=== PATIENT | male | born 1970 | race Caucasian/White ===

== ENCOUNTER 2024-07-24 21:28 | Emergency (ER) | payer MEDICARE, SELFPAY ==
--- NOTE | ~2024-07-24 | XR_ITS ---
CLINICAL HISTORY: injury 2 view right knee Comparison: None Findings: No fractures or dislocations. No arthritic change. No joint effusion. No radiopaque foreign body. IMPRESSION: 1. No acute findings. This document has been electronically signed by: Del Laws MD on 07/25/2024 00:38:09
[2024-07-24 21:30] VITALS: BP 160/92; PULSE 92; O2SAT 99
[2024-07-24 21:50] VITALS: BP 137/71; PULSE 94; RESP 20; TEMP 36.6; O2SAT 98; BMI 46.4
[2024-07-25] MEDS: Ketorolac Tromethamine 15 MG/ML VIAL IM (02:14)
--- NOTE | 2024-07-25 02:17 | PC.NURSE ---
Medicated per MAR. Tech at bedside for immobilizer and crutches.
--- NOTE | 2024-07-25 02:37 | ED_ITS ---
HPI - General Adult General Chief complaint: Extremity Injury, Lower Stated complaint: knee pain rt Time Seen by Provider: 07/24/24 23:57 Source: patient Limitations: no limitations History of Present Illness ED Provider: Geneva Corley PA-C HPI narrative: 54-year-old male presents with right knee pain. Patient states he sustained a fall on , he can not recall exactly how he landed. He has had pain and swelling since. The pain has worsened. Patient is still ambulatory. Related Data Previous Rx's ?Medication ?Instructions ?Recorded ketorolac 10 mg tablet 10 mg PO Q6H PRN pain #20 tabs 07/25/24 Allergies Allergy/AdvReac Type Severity Reaction Status Date / Time florfeenicol AdvReac Rash Uncoded 07/24/24 22:02 Review of Systems Review of Systems: Yes all other systems are reviewed and are negative Constitutional: Constitutional: Denies fatigue and Denies fever(s) Musculoskeletal: Musculoskeletal: Reports arthralgias and Reports joint swelling Endocrine: Endocrine: Denies fatigue PMFSH Past Medical History Attestation statement: The following information was validated with the patient. Social History Social History Advance Directives: No Advance Directives Information Provided: No Do you have a plan to hurt others: No Plan Physical Exam ED Vital Signs: Vital Signs - 24 hr 07/24/24 21:50 Temperature 97.9 F Pulse Rate 94 Respiratory Rate 20 Blood Pressure 137/71 Pulse Oximetry 98 Oxygen Delivery Method Room Air BMI result Body Mass Index 46.4 Const Other: Alert well-appearing Orientation/consciousness: patient oriented x3 Resp Effort & Inspection: normal respiratory effort Cardio Other: normal peripheral perfusion Skin Other: warm dry no rash Neuro General: patient oriented x3, gait normal, no focal motor deficits and CN's II- XI intact bilaterally Extrem Other: mild swelling noted over the right knee, overlying ecchymosis noted, the knee is warm to touch, full flexion and extension no deformity Psych Other: cooperative Medications Administered Discontinued Medications Generic Name Dose Route Start Last Admin Trade Name Freq PRN Reason Stop Dose Admin Ketorolac Tromethamine 15 mg 07/25/24 01:57 07/25/24 02:14 Ketorolac Tromethamine 15 Mg/Ml Vial IM 07/25/24 01:58 15 mg ONCE ONE Administration Medical Decision Making Medical Decision Making MDM Narrative: 54-year-old male presents with right knee pain. Patient states he sustained a fall on weekend, he can not recall exactly how he landed. He has had pain and swelling since. The pain has worsened. Patient is still ambulatory. no chronic issues History: Per patient I have considered the following differential diagnoses: Fracture, dislocation, sprain, contusion, septic joint Plan: X-ray ordered from triage there was no fracture or dislocation. He likely has a sprain. We will place in a knee immobilizer, send with crutches and give Toradol. Thought about septic joint, the area is warm, however he has full range of motion. I have independently reviewed the following tests: X-ray right knee:Findings: No fractures or dislocations. No arthritic change. No joint effusion. No radiopaque foreign body. IMPRESSION: 1. No acute findings. Discharge Plan Discharge Clinical Impression: Right knee sprain Patient Disposition: Home, Self-Care Instructions: Knee Sprain (ED), Crutch Instructions (ED), P.R.I.C.E. Treatment (ED) Additional Instructions: the x-ray was negative for fracture or dislocation. You have sustained a sprain. See home care instructions. Use the ketorolac as directed, take it with food, this is an anti-inflammatory. You can alternate with the use of [id number] Tylenol 1000 mg taken every 8 hours. Use the knee immobilizer and crutches as needed, bear weight as tolerated. You should ice the area several times a day for at least 15 minutes at a time. While resting, elevate the leg above your heart. If you do not see improvement, follow up with the orthopedic service, you may require an MRI as an outpatient. I have provided you with a contact for our orthopedic service. Prescriptions: New ketorolac 10 mg tablet 10 mg PO Q6H PRN (Reason: pain) Qty: 20 0RF Rx Instructions: maximum total duration of 5 days from all oral, intranasal, or parenteral formulations. The patient received an intramuscular dose of Toradol here in the emergency room. Referrals: Brennan Aguirre MD [Physician] - (right knee sprain) Stand Alone Forms: Work/School Release Print Language: [place]
[2024-07-25 02:56] VITALS: BP 132/68; PULSE 84; RESP 16; TEMP 36.7; O2SAT 98
== END 2024-07-25 02:57 | disposition home or self-care (01) ==
PROVIDERS: Emergency Provider Emergency Medicine
DX: S83.91XA Sprain of unspecified site of right knee, initial encounter (principal); S80.01XA Contusion of right knee, initial encounter; W19.XXXA Unspecified fall, initial encounter; M25.561 Pain in right knee; Y93.9 Activity, unspecified; Y92.9 Unspecified place or not applicable; Y99.9 Unspecified external cause status
CPT/HCPCS: 73560; 96372; 99283; 99284; J1885

== ENCOUNTER → 2024-07-25 | Outpatient (BNV) | payer MEDICARE, SELFPAY | PROVIDERS: Visit Provider Radiology Diagnostic Radiology | DX: M25.561 Pain in right knee (principal) | CPT/HCPCS: 73560 ==